=== PATIENT | male | born 1980 | race African-American/Black ===

== ENCOUNTER 2019-09-06 15:28 | Emergency (ER) | payer OTHER ==
[~2019-09-06] VITALS: Ht 188 cm; Wt 86.2 kg
[~2019-09-06 15:28] MED LIST: BACTRIM DS TAB1 EACH PO; BACTROBAN CREAM30 G1 TOP; DICLOXACILLIN250 M1 PO; PERCOCET 5-3251 EACH PO
[2019-09-06] MEDS ORDERED: CENTANY30 GM TOP (16:20)
[2019-09-06 16:44] VITALS: BP 187/123
== END 2019-09-06 16:45 | disposition home or self-care (01) ==
LOC: ER 15:28
DX: L01.00 Impetigo, unspecified (principal); I10 Essential (primary) hypertension; F17.210 Nicotine dependence, cigarettes, uncomplicated

== ENCOUNTER 2020-10-07 17:22 | Emergency (ER) | payer OTHER ==
[~2020-10-07] VITALS: Ht 188 cm; Wt 83.9 kg
[~2020-10-07 17:22] MED LIST changes: +CENTANY30 GM TOP
[2020-10-07 17:26] VITALS: BP 151/109
[2020-10-07] MEDS ORDERED: MICONAZOLE NITR45 G3 TOP (18:07)
[2020-10-07] MEDS ORDERED: TERBINAFINE HC250 MG PO (18:07)
== END 2020-10-07 18:35 | disposition home or self-care (01) ==
LOC: ER 17:22
DX: B35.4 Tinea corporis (principal); L29.9 Pruritus, unspecified; I10 Essential (primary) hypertension; F17.210 Nicotine dependence, cigarettes, uncomplicated; Z79.899 Other long term (current) drug therapy

== ENCOUNTER 2021-07-08 20:30 | Emergency (ER) | payer OTHER ==
[~2021-07-08] VITALS: Ht 188 cm; Wt 83.9 kg
[~2021-07-08 20:30] MED LIST changes: +MICONAZOLE NITR45 G3 TOP; +TERBINAFINE HC250 MG PO
[2021-07-08 21:17] LABS: ABSOLUTE NEUTROPHILS 2.7 thou/uL (1.4-8.2); BASOPHILS 1.2 % (0.0-2.0); HEMATOCRIT 34.8 % (42.0-52.0); LYMPHOCYTES 38.3 % (24.0-44.0); MCH 31.3 pg (26.0-34.0); MCHC 34.4 g/dL (28.0-37.0); MONOCYTES 9.2 % (1.0-8.0); PLATELET COUNT 194 thou/uL (150-400); POLYS 50.3 % (36.0-66.0); RBC 3.83 mil/uL (4.50-6.00); WBC 5.5 thou/uL (4.0-11.0)
[2021-07-08 22:44] LABS: CALCIUM 8.9 mg/dL (8.5-10.1); CREATININE 1.3 mg/dL (0.7-1.3); POTASSIUM 3.9 mmol/L (3.5-5.1)
[2021-07-08 23:36] VITALS: BP 160/114
== END 2021-07-08 23:25 | disposition home or self-care (01) ==
LOC: ER 20:30
PROVIDERS: Student in an Organized Health Care Education/Training Program
DX: K57.11 Diverticulosis of small intestine without perforation or abscess with bleeding (principal); I10 Essential (primary) hypertension; F17.210 Nicotine dependence, cigarettes, uncomplicated; Z79.899 Other long term (current) drug therapy